=== PATIENT | female | born 2000 | race African-American/Black ===

== ENCOUNTER 2018-08-10 19:24 | Emergency (ER) | payer OTHER ==
[2018-08-10 21:09] LABS: ADD MAN DIFF? NO
[2018-08-10 21:12] LABS: BASOPHIL # 0.1 10^3/ul (0.0-0.1); BASOPHILS % 0.7 % (0.0-2.0); EOSINOPHILS # 0.1 10^3/ul (0.0-0.5); EOSINOPHILS % 1.6 % (0.0-7.0); HEMATOCRIT 35.9 % (37.0-47.0); HEMOGLOBIN 11.1 g/dl (12.0-16.0); LYMPHOCYTES # 1.9 10^3/ul (0.8-2.9); MEAN CORPUSCULAR HEMOGLOBIN 27.4 pg (29.0-33.0); MEAN CORPUSCULAR HGB CONC 30.9 g/dl (32.0-37.0); MEAN CORPUSCULAR VOLUME 88.6 fl (72.0-104.0); MEAN PLATELET VOLUME 9.3 fl (7.4-10.4); MONOCYTE # 0.5 10^3/ul (0.3-0.9); MONOCYTES % 6.2 % (0.0-13.0); NEUTROPHIL # 4.8 10^3/ul (1.6-7.5); NEUTROPHILS % 65.2 % (30.0-74.0); PLATELET COUNT 418 10^3/UL (140-415); RED BLOOD COUNT 4.05 10^6/ul (4.20-5.40); RED CELL DISTRIBUTION WIDTH 15.3 % (11.5-14.5)
[2018-08-10 21:12] LABS: WHITE BLOOD COUNT 7.4 10^3/ul (4.8-10.8)
[2018-08-10 21:28] LABS: IRON 29 ug/dl (35-150)
[2018-08-10 21:37] LABS: % IRON SATURATION 6 % SAT (22-52); TOTAL IRON BINDING CAPACITY 477 ug/dl (241-421)
== END 2018-08-10 22:23 | disposition home or self-care (01) ==
LOC: FTE 19:24
DX: D50.9 Iron deficiency anemia, unspecified (principal); R07.89 Other chest pain
CPT/HCPCS: 71045; 83540; 85025; 93005; 99285-25